=== PATIENT | male | born 1945 | race Hispanic/Latino ===

== ENCOUNTER 2018-03-11 08:37 | Outpatient (CLI) | payer MEDICARE ==
[2018-03-11 09:30] LABS: Blood Urea Nitrogen 17 mg/dL (9-20)
--- NOTE | 2018-03-11 15:04 | Cat Scan Report ---
FINAL REPORT PROCEDURE: CT angiography of the abdomen, the pelvis, the lower extremities. TECHNIQUE: Computerized axial tomographic angiography of the, abdomen, pelvis and aortoiliac system with bilateral lower extremity runoff was performed after the IV injection of nonionic iodinated contrast including image processing.The image data was postprocessed using 2-dimensional multiplanar reformatted (MPR) and 3-dimensional (MIP and/or volume rendered) techniques. HISTORY: ABDOMINAL ANEURYSM [id number], WITHOUT RUPTURE COMPARISON: No prior studies are available for comparison. FINDINGS: There is a [place] abdominal aortic aneurysm measuring 4.8 centimeter transverse, 4.4 centimeter AP. This is partially calcified. There is an aorto bi-iliac stent graft in place. The graft is patent. Within the [place] aneurysm there is a large amount of thrombus present as well as some linear bands of increased density which may represent calcified thrombus. Contrast leaking from the graft is felt to be less likely. This finding is visualized on images 85-101 series 2 axial image. There is no leakage outside of the [place] aneurysm. There is mild calcified plaquing at the origins of both right and left renal arteries without significant stenosis. 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 The superior mesenteric artery is widely patent. Inferior mesenteric artery is not clearly visualized. There is mild plaquing at the origin of the right common femoral artery. There is minimal plaquing of the distal superficial femoral artery, proximal popliteal artery, less than 30 percent stenosis. Calcifications are seen in the peroneal tibial trunk narrowing the vessel approximately 30 percent. Three-vessel runoff appears to be visualized however the distal vessels are suboptimally opacified with contrast. On the left side there is mild calcified plaquing at the origin of the common femoral artery narrowing the vessel approximately 30 percent. There is mild scattered plaquing distally in the superficial femoral artery. Calcified plaquing is seen extending into the popliteal artery with areas narrowed 30-40 percent. Calcification of the tibial peroneal trunk visualized narrowing the vessel less than 30 percent. Three-vessel runoff appears to be present. Low-density nodule measuring 4.5 centimeters seen in the left lobe of the liver which appears represent a hepatic cyst. A 2nd smaller cyst measuring approximately 1.4 centimeters seen laterally in the left lobe of the liver. Liver is otherwise unremarkable. The gallbladder, the adrenal glands and spleen are unremarkable. The pancreas appears mildly atrophied otherwise unremarkable. Nonspecific subcentimeter lymph nodes seen in the retroperitoneum. These do not appear to be pathologically enlarged. Low-density nodule projects in the lower 3rd of the left kidney which appears represent renal cortical cyst. Kidneys ureters are unremarkable. Jett of the urinary bladder appear mildly thickened. This may be due to lack of distension. I cannot exclude trabeculation from bladder outlet obstruction. There is nonspecific mild prostate enlargement. Moderate diverticulosis of the sigmoid colon, mild changes seen in the descending colon. Normal-appearing appendix is seen in the right lower quadrant. The jett of the sigmoid colon seen on image is 157 series 2 appear mildly thickened. This extends over approximately 5 centimeters. This may represent scarring from previous episodes of diverticulitis. I cannot exclude infiltrating mass. Consider follow-up barium enema. Degenerative changes are seen in the lumbar spine and hips. No acute bony abnormalities are identified. IMPRESSION: [place] abdominal aortic aneurysm visualized with aorto bi-iliac stent graft in place. The graft is patent. There is increased density seen in the thrombus within the aneurysm surrounding the graft. This may represent calcified thrombus. I cannot exclude a small amount of contrast leaking into the thrombus. There is no leakage outside of the [place] aneurysm. Approximately 50 percent stenosis seen proximal celiac trunk. SMA appears widely patent. Minimal disease seen proximal renal arteries. The inferior mesenteric artery is not visualized and may be occluded. Scattered disease seen in the common femoral artery superficial femoral arteries popliteal arteries and tibioperoneal trunks. 30-40 percent narrowing seen in the runoff bilaterally. Please see above comments. Hepatic cysts and renal cortical cyst appear to be present. There is mild nonspecific diffuse prostate enlargement. Jett of the urinary bladder appear mildly thickened. Please see above comments. Colonic diverticulosis. I do not see evidence of acute diverticulitis. There is wall thickening seen in the sigmoid colon as described. This may reflect scarring from previous episodes of diverticulitis. I cannot exclude a mass. Consider follow-up barium enema.
== END 2018-03-11 08:38 | disposition home or self-care (01) ==
LOC: CT 08:37
PROVIDERS: ATTEND Surgery Vascular Surgery
DX: I71.4 Abdominal aortic aneurysm, without rupture (principal); I74.3 Embolism and thrombosis of arteries of the lower extremities; I74.09 Other arterial embolism and thrombosis of abdominal aorta; I70.1 Atherosclerosis of renal artery; I77.4 Celiac artery compression syndrome; I70.213 Atherosclerosis of native arteries of extremities with intermittent claudication, bilateral legs; I70.203 Unspecified atherosclerosis of native arteries of extremities, bilateral legs; N40.0 Benign prostatic hyperplasia without lower urinary tract symptoms; K57.30 Diverticulosis of large intestine without perforation or abscess without bleeding; M16.0 Bilateral primary osteoarthritis of hip; K86.89 Other specified diseases of pancreas; M47.896 Other spondylosis, lumbar region; K76.89 Other specified diseases of liver; Z87.891 Personal history of nicotine dependence
CPT/HCPCS: 36415; 75635; 82565; 84520; Q9967